=== PATIENT | female | born 1990 | race Two or more races ===

== ENCOUNTER → 2023-05-30 | Day surgery (SDC) | payer OTHER ==
[2023-05-29 18:43] LABS: HEMATOCRIT 35.8 % (36.0-45.00); HEMOGLOBIN 12.3 g/dL (12.0-15.00); MEAN CELL VOLUME 88.8 fL (80.00-100.00); MEAN CORPUSCULAR HEMOGLOBIN 30.5 pg (27.00-32.0); MEAN CORPUSCULAR HGB CONC 34.3 g/dl (32.0-36.0); PLATELET COUNT 260 K/uL (150-450); RED BLOOD COUNT 4.03 M/uL (4.00-6.00); RED CELL DISTRIBUTION WIDTH 13.8 % (11.5-14.5)
[2023-05-29 19:32] LABS: URINE APPEARANCE Cloudy; URINE BILIRRUBIN Negative (NEGATIVE); URINE BLOOD Large; URINE COLOR Yellow; URINE GLUCOSE Negative (NEGATIVE); URINE LEUKOCYTE Small; URINE NITRATE Negative; URINE PROTEIN Trace (NEGATIVE); URINE UROBILINOGEN 0.2 E.U./dl
[2023-05-29 19:36] LABS: URINE EPITHELIAL CELLS 20.7 uL (0.0-38.8); URINE WBC 41.1 uL (0.0-23.2)
[2023-05-29 19:44] LABS: ALBUMIN 3.6 gm/dL (3.4-5.0); BILIRUBIN TOTAL 0.29 mg/dL (0.3-1.2); CALCIUM 9.3 mg/dL (8.5-10.1); CREATININE SERUM 0.65 mg/dL (0.55-1.02); GFR 103.72; GLOBULINA 4.4 G/DL (2.4-3.5); POTASSIUM 3.48 mEq/L (3.5-5.1)
[2023-05-29 21:10] LABS: INR 1.11; PARTIAL THROMBOPLASTIN TIME 29.9 SECONDS (22.0-34.0); PROTHROMBIN TIME 11.6 SECONDS (9.0-11.5)
[~2023-05-30] VITALS: Ht 160 cm; Wt 78.0 kg
[~2023-05-30] MED LIST: PRENA1 TRUE CO1 EACH PO
== END | disposition home or self-care (01) ==
LOC: EDSTATUS 05-29 16:31 → ER 05-29 16:31 → CIR.AMB 10:25 → ER 10:28 → SEC-K 10:28
PROVIDERS: ATTEND General Practice
DX: O03.4 Incomplete spontaneous abortion without complication (principal); O72.2 Delayed and secondary postpartum hemorrhage; R10.2 Pelvic and perineal pain; N93.8 Other specified abnormal uterine and vaginal bleeding

== ENCOUNTER 2023-07-03 08:31 | Emergency (ER) | payer OTHER ==
[~2023-07-03] VITALS: Ht 160 cm; Wt 76.7 kg
[2023-07-03] MEDS ORDERED: AMOX-CLAV 875-1 EACH PO (09:22)
[2023-07-03] MEDS ORDERED: PEPCID AC20 MG PO (09:22)
== END 2023-07-03 12:39 | disposition home or self-care (01) ==
LOC: ER 08:31
DX: H66.93 Otitis media, unspecified, bilateral (principal)

== ENCOUNTER 2024-11-15 07:19 | Outpatient (CLI) | payer OTHER ==
[~2024-11-15 07:19] MED LIST changes: +AMOX-CLAV 875-1 EACH PO; +PEPCID AC20 MG PO
== END 2024-11-15 07:21 | disposition home or self-care (01) ==
LOC: PRENATAL 07:19
PROVIDERS: ATTEND Obstetrics & Gynecology Maternal & Fetal Medicine
DX: O36.80X0 Pregnancy with inconclusive fetal viability, not applicable or unspecified (principal); Z36.82 Encounter for antenatal screening for nuchal translucency; O09.529 Supervision of elderly multigravida, unspecified trimester; O26.20 Pregnancy care for patient with recurrent pregnancy loss, unspecified trimester; O34.10 Maternal care for benign tumor of corpus uteri, unspecified trimester; Z3A.12 12 weeks gestation of pregnancy

== ENCOUNTER → 2025-01-13 08:04 | Outpatient (CLI) | payer OTHER | END | disposition home or self-care (01) | LOC: PRENATAL 08:04 | PROVIDERS: ATTEND Obstetrics & Gynecology Maternal & Fetal Medicine | DX: O44.00 Complete placenta previa NOS or without hemorrhage, unspecified trimester (principal); O09.529 Supervision of elderly multigravida, unspecified trimester; O26.20 Pregnancy care for patient with recurrent pregnancy loss, unspecified trimester; O34.10 Maternal care for benign tumor of corpus uteri, unspecified trimester; O24.419 Gestational diabetes mellitus in pregnancy, unspecified control; Z3A.20 20 weeks gestation of pregnancy ==

== ENCOUNTER 2025-03-07 08:32 | Outpatient (CLI) | payer OTHER | END 2025-03-07 08:35 | disposition home or self-care (01) | LOC: PRENATAL 08:32 | PROVIDERS: ATTEND Obstetrics & Gynecology Maternal & Fetal Medicine | DX: O26.849 Uterine size-date discrepancy, unspecified trimester (principal); O09.529 Supervision of elderly multigravida, unspecified trimester; O26.20 Pregnancy care for patient with recurrent pregnancy loss, unspecified trimester; O34.10 Maternal care for benign tumor of corpus uteri, unspecified trimester; O24.419 Gestational diabetes mellitus in pregnancy, unspecified control; Z3A.28 28 weeks gestation of pregnancy ==

== ENCOUNTER 2025-03-21 07:35 | Outpatient (CLI) | payer OTHER | END 2025-03-21 07:40 | disposition home or self-care (01) | LOC: PRENATAL 07:35 | PROVIDERS: ATTEND Obstetrics & Gynecology Maternal & Fetal Medicine | DX: O26.849 Uterine size-date discrepancy, unspecified trimester (principal); O09.529 Supervision of elderly multigravida, unspecified trimester; O34.10 Maternal care for benign tumor of corpus uteri, unspecified trimester; O24.419 Gestational diabetes mellitus in pregnancy, unspecified control; Z3A.30 30 weeks gestation of pregnancy ==

== ENCOUNTER 2025-03-22 21:58 | Outpatient (CLI) | payer OTHER ==
[~2025-03-22] VITALS: Ht 160 cm; Wt 79.8 kg
[2025-03-22 21:30] VITALS: BP 117/77
[~2025-03-22 21:58] MED LIST changes: -CEPHALEXIN500 MG PO
[2025-03-22] MEDS ORDERED: RINGERS SOLUTION,LACTATED 1,000 ML IV SCH (22:15)
[2025-03-22 22:59] LABS: URINE APPEARANCE Clear; URINE BILIRRUBIN Negative (NEGATIVE); URINE BLOOD Negative; URINE COLOR Yellow; URINE GLUCOSE Negative (NEGATIVE); URINE KETONE 15 (NEGATIVE); URINE LEUKOCYTE Negative; URINE NITRATE Negative; URINE PROTEIN 30 (NEGATIVE); URINE UROBILINOGEN 0.2 E.U./dl
[2025-03-22 23:02] LABS: URINE BACTERIA 2021.8 uL (0.0-1933); URINE EPITHELIAL CELLS 45.2 uL (0.0-38.8); URINE RBC 9.5 uL (0.0-20.8); URINE WBC 7.0 uL (0.0-23.2)
[2025-03-22 23:09] LABS: BASO % 0.3 % (0.1-1.2); EOS # 0.08 (0.04-0.54); EOS % 0.7 % (0.7-7.0); LYMPH # 2.40 (1.18-3.74); LYMPH % 19.5 % (19.3-53.1); MEAN PLATELET VOLUME 11.20 fl (9.4-12.4); MONO # 0.98 (0.24-0.82); MONO % 8.0 % (4.7-12.5); NEUT # 8.77 (1.56-6.13); NEUT % 71.3 % (34.0-71.1); RED CELL DISTRIBUTION WIDTH 13.9 % (11.6-14.4)
[2025-03-22 23:17] LABS: URINE CAST 0.14 uL (0.0-1.40)
[2025-03-22 23:30] VITALS: BP 109/70
[2025-03-23] MEDS ORDERED: CEFAZOLIN SODIUM 1,000 MG VIAL IV SCH (01:00)
[2025-03-23 04:30] VITALS: BP 98/63
[2025-03-23 06:25] VITALS: BP 93/60; O2SAT 97
[2025-03-23] MEDS ORDERED: CEPHALEXIN500 MG PO (08:46)
[2025-03-23 11:00] VITALS: BP 111/74; O2SAT 98
== END 2025-03-23 13:32 | disposition home or self-care (01) ==
LOC: OBS/DEL 21:58
PROVIDERS: ATTEND Obstetrics & Gynecology
DX: O26.893 Other specified pregnancy related conditions, third trimester (principal); O36.8199 Decreased fetal movements, unspecified trimester, other fetus; O26.859 Spotting complicating pregnancy, unspecified trimester; Z3A.30 30 weeks gestation of pregnancy

== ENCOUNTER → 2025-03-22 | Emergency (ER) | payer OTHER ==
[~2025-03-22] MED LIST changes: +CEPHALEXIN500 MG PO
== END | disposition left against medical advice (07) ==
LOC: ER 20:24
DX: Z53.21 Procedure and treatment not carried out due to patient leaving prior to being seen by health care provider (principal)

== ENCOUNTER 2025-04-17 09:56 | Outpatient (CLI) | payer OTHER ==
[~2025-04-17 09:56] MED LIST changes: +CEPHALEXIN500 MG PO
== END 2025-04-17 09:57 | disposition home or self-care (01) ==
LOC: PRENATAL 09:56
PROVIDERS: ATTEND Obstetrics & Gynecology Maternal & Fetal Medicine
DX: O26.849 Uterine size-date discrepancy, unspecified trimester (principal); O36.8199 Decreased fetal movements, unspecified trimester, other fetus; O09.529 Supervision of elderly multigravida, unspecified trimester; O26.20 Pregnancy care for patient with recurrent pregnancy loss, unspecified trimester; O34.10 Maternal care for benign tumor of corpus uteri, unspecified trimester; O24.419 Gestational diabetes mellitus in pregnancy, unspecified control; Z3A.35 35 weeks gestation of pregnancy

== ENCOUNTER 2025-05-15 14:00 | Inpatient (IN) | payer OTHER ==
[~2025-05-15] VITALS: Ht 160 cm; Wt 3.2 kg
[2025-05-22 06:01] VITALS: BP 120/86
[2025-05-22 06:39] LABS: URINE APPEARANCE Cloudy; URINE BILIRRUBIN Negative (NEGATIVE); URINE BLOOD Negative; URINE COLOR Yellow; URINE GLUCOSE Negative (NEGATIVE); URINE KETONE Trace (NEGATIVE); URINE LEUKOCYTE Trace; URINE NITRATE Negative; URINE PROTEIN Trace (NEGATIVE); URINE UROBILINOGEN 0.2 E.U./dl
[2025-05-22 06:43] LABS: URINE BACTERIA 3610.5 uL (0.0-1933); URINE EPITHELIAL CELLS 138.5 uL (0.0-38.8); URINE RBC 7.4 uL (0.0-20.8); URINE WBC 69.8 uL (0.0-23.2)
[2025-05-22 06:44] LABS: BASO % 0.4 % (0.1-1.2); EOS # 0.09 (0.04-0.54); EOS % 0.9 % (0.7-7.0); LYMPH # 2.91 (1.18-3.74); LYMPH % 28.8 % (19.3-53.1); MEAN PLATELET VOLUME 11.70 fl (9.4-12.4); MONO # 0.60 (0.24-0.82); MONO % 5.9 % (4.7-12.5); NEUT # 6.43 (1.56-6.13); NEUT % 63.8 % (34.0-71.1); RED CELL DISTRIBUTION WIDTH 14.5 % (11.6-14.4)
[2025-05-22] MEDS ORDERED: RINGERS SOLUTION,LACTATED 1,000 ML IV SCH (07:00)
[2025-05-22] MEDS ORDERED: MISOPROSTOL 50 MCG TABLET VAG ONE (07:00)
[2025-05-22 07:08] LABS: ALT/SGPT 24.0 U/L (12-78); AST/SGOT 18.0 U/L (15-37); BILIRUBIN TOTAL 0.23 mg/dL (0.3-1.2); BUN CREA RATIO 20.0 (7.0-25.0); CREATININE SERUM 0.56 mg/dL (0.55-1.02); GFR 121.81; GLOBULINA 3.6 G/DL (2.4-3.5); GLUCOSE FASTING 123.0 mg/dL (65-100); OSMOLALITY SERUM 278.0 MOSM/KG (275-295)
[2025-05-22 07:11] LABS: INR 0.98
[2025-05-22 07:42] VITALS: BP 127/80
[2025-05-22 07:57] LABS: TYPE CELLS SQUAMOUS; URINE CAST 0.29 uL (0.0-1.40); URINE YEAST FEW /hpf
[2025-05-22 11:10] VITALS: BP 104/68
[2025-05-22] MEDS ORDERED: MISOPROSTOL 25 MCG/4 ML GEL.W.APPL VAG ONE (13:15)
[2025-05-22 15:19] VITALS: BP 127/62
[2025-05-22] MEDS ORDERED: CEFAZOLIN SODIUM 1,000 MG VIAL ONE (17:57)
[2025-05-22] MEDS ORDERED: CEFAZOLIN SODIUM 1,000 MG VIAL IV NR (18:00)
[2025-05-22] MEDS ORDERED: OXYTOCIN 10 UNITS/ML VIAL ONE ×2 (18:08→20:37)
[2025-05-22] MEDS ORDERED: ERYTHROMYCIN BASE OPHT 1GM EACH TUBE OP ONE (18:09)
[2025-05-22] MEDS ORDERED: MORPHINE SULFATE 4 MG/ML CARTRIDGE IV PRN (19:45)
[2025-05-22] MEDS ORDERED: ONDANSETRON HCL 2 MG/ML VIAL IV PRN (19:45)
[2025-05-22] MEDS ORDERED: OXYTOCIN 1,000 ML IV SCH (20:45)
[2025-05-22] MEDS ORDERED: SIMETHICONE 125 MG CAPSULE PO SCH (21:00)
[2025-05-22 21:31] VITALS: BP 144/76
[2025-05-23] MEDS ORDERED: KETOROLAC TROMETHAMINE 30 MG VIAL IV SCH
[2025-05-23 00:23] VITALS: BP 110/69
[2025-05-23] MEDS ORDERED: ACETAMINOPHEN 325 MG TABLET PO SCH (06:00)
[2025-05-23 06:56] LABS: BASO % 0.2 % (0.1-1.2); EOS # 0.01 (0.04-0.54); EOS % 0.1 % (0.7-7.0); LYMPH # 1.75 (1.18-3.74); LYMPH % 13.9 % (19.3-53.1); MEAN PLATELET VOLUME 12.00 fl (9.4-12.4); MONO # 0.86 (0.24-0.82); MONO % 6.8 % (4.7-12.5); NEUT # 9.89 (1.56-6.13); NEUT % 78.7 % (34.0-71.1); RED CELL DISTRIBUTION WIDTH 14.5 % (11.6-14.4)
[2025-05-23] MEDS ORDERED: DOCUSATE SODIUM 100MG CAP PO SCH (09:00)
[2025-05-23 16:00] VITALS: BP 139/86
[2025-05-24 02:27] VITALS: BP 123/83
[2025-05-24 07:56] VITALS: BP 131/82
[2025-05-24 16:00] VITALS: BP 140/80
[2025-05-24] MEDS ORDERED: COLACE100 MG PO (16:56)
[2025-05-24] MEDS ORDERED: IBU800 MG PO (16:56)
== END 2025-05-24 18:52 | disposition home or self-care (01) | DRG 785 ==
LOC: LDR 05-22 05:52 → OB/GYN 05-22 14:00 → O/R 05-22 18:20 → OB/GYN 05-22 20:08
PROVIDERS: ADMIT Obstetrics & Gynecology; ATTEND Obstetrics & Gynecology
PROC: 0UB50ZZ Excision of Right Fallopian Tube, Open Approach (ICD-10-PCS; 2025-05-22)
PROC: 4A1HXCZ Monitoring of Products of Conception, Cardiac Rate, External Approach (ICD-10-PCS; 2025-05-22)
PROC: 10D00Z1 Extraction of Products of Conception, Low, Open Approach (ICD-10-PCS; principal; 2025-05-22 18:00)
DX: O24.420 Gestational diabetes mellitus in childbirth, diet controlled (principal); Z3A.39 39 weeks gestation of pregnancy; Z37.0 Single live birth; Z30.2 Encounter for sterilization